=== PATIENT | female | born 1990 | race Caucasian/White ===

== ENCOUNTER 2017-10-19 01:49 | Emergency (ER) | payer MEDICAID ==
[~2017-10-19] VITALS: Ht 154.9 cm; Wt 54.0 kg
[~2017-10-19 01:49] MED LIST: PRENAT PO
[2017-10-19 01:57] VITALS: Ht 154.9 cm; Wt 54.0 kg
[2017-10-19] MEDS ORDERED: SOD CHLORIDE 0.9% 500 ML IV STA (02:38)
[2017-10-19] MEDS ORDERED: HYDROmorphONE 1 MG/ML SYG IV STA (02:38)
[2017-10-19] MEDS ORDERED: ONDANSETRON 4 MG INJ IV STA (02:38)
--- NOTE | 2017-10-19 03:16 | ERD ---
ER Documentation Chief Complaint Chief Complaint pelvic pain x 1 day HPI This is a 26-year-old female who states that this morning she had the onset of sudden sharp it is now becoming a dull ache in the right lower quadrant. She is having no nausea no vomiting no diarrhea no fever no vaginal discharge no dysuria. Pain is nonradiating. No pain in the back no recent hematuria or dysuria. The pain is not increased with walking ROS All systems reviewed and are negative except as per history of present illness. Medications Home Meds Reported Medications Multivit/Min/Fol Ac/Iron/Pren* ( S*) 1 Tab Tab, 1 TAB PO DAILY, TAB 08/26/14 Allergies Allergies: Coded Allergies: No Known Allergy (Unverified , 09/29/14) PMhx/Soc Medical and Surgical Hx: pt denies Medical Hx History of Surgery: Yes (c section) Hx Neurological Disorder: No Hx Respiratory Disorders: No Hx Cardiac Disorders: No Hx Psychiatric Problems: No Hx Miscellaneous Medical Probl: No Hx Alcohol Use: No Hx Substance Use: No Hx Tobacco Use: No Smoking Status: Never smoker FmHx Family History: No coronary disease Physical Exam Vitals Vital Signs Date Time Temp Pulse Resp B/P Pulse Ox O2 Delivery O2 Flow Rate FiO2 10/19/17 01:57 98.2 61 20 114/67 99 Physical Exam Const: Well-developed, well-nourished Head: Atraumatic, normocephalic Eyes: Normal Conjunctiva, PERRLA, EOMI, normal sclera, no nystagmus ENT: Normal External Ears, Nose and Mouth, moist mucus membranes. Neck: Full range of motion. No meningismus, no lymphadenopathy. Resp: Clear to auscultation bilaterally, no wheezing, rhonchi, rales Cardio: Regular rate and rhythm, no murmurs, S1 S2 present Abd: Soft, moderate tenderness in the right lower quadrant and right adnexa non distended. Normal bowel sounds, no guarding or rebound, no pulsitile abdominal masses or bruits Skin: No petechiae or rashes, no ecchymosis , no maculopapular rash Back: No midline or flank tenderness Ext: No cyanosis, or edema, FROM x 4, normal inspection, neurovascularly intact x 4 Neur: Awake and alert, STR 5/5 x 4, sensation intact x 4, no focal findings, cerebellum intact Psych: Normal Mood and Affect Result Diagram: 10/19/17 0304 10/19/17 0304 Results 24 hrs Laboratory Tests Test 10/19/17 03:04 10/19/17 03:10 White Blood Count 8.810^3/ul Red Blood Count 4.6310^6/ul Hemoglobin 12.7g/dl Hematocrit 38.1% Mean Corpuscular Volume 82.3fl Mean Corpuscular Hemoglobin 27.4pg Mean Corpuscular Hemoglobin Concent 33.3g/dl Red Cell Distribution Width 13.1% Platelet Count 83911^3/UL Mean Platelet Volume 10.8fl Neutrophils % 48.1% Lymphocytes % 41.1% Monocytes % 7.7% Eosinophils % 2.2% Basophils % 0.7% Nucleated Red Blood Cells % 0.0/100WBC Neutrophils # 4.210^3/ul Lymphocytes # 3.610^3/ul Monocytes # 0.710^3/ul Eosinophils # 0.210^3/ul Basophils # 0.110^3/ul Nucleated Red Blood Cells # 0.010^3/ul Sodium Level 142mmol/L Potassium Level 3.8mmol/L Chloride Level 105mmol/L Carbon Dioxide Level 29mmol/L Anion Gap 12 Blood Urea Nitrogen 20mg/dl Creatinine 0.72mg/dl Glucose Level 89mg/dl Calcium Level 9.6mg/dl Total Bilirubin 0.2mg/dl Direct Bilirubin 0.00mg/dl Indirect Bilirubin 0.2mg/dl Aspartate Amino Transf (AST/SGOT) 39IU/L Alanine Aminotransferase (ALT/SGPT) 50IU/L Alkaline Phosphatase 93IU/L Total Protein 7.0g/dl Albumin 3.7g/dl Globulin 3.30g/dl Albumin/Globulin Ratio 1.12 Urine Color COLORLESS Urine Clarity CLEAR Urine pH 7.0 Urine Specific [place] 1.004 Urine Ketones NEGATIVEmg/dL Urine Nitrite NEGATIVEmg/dL Urine Bilirubin NEGATIVEmg/dL Urine Urobilinogen NEGATIVEmg/dL Urine Leukocyte Esterase NEGATIVELeu/ul Urine Hemoglobin NEGATIVEmg/dL Urine Glucose NEGATIVEmg/dL Urine Total Protein NEGATIVEmg/dl Current Medications Medications (Trade) Dose Ordered Sig/Cecil Route PRN Reason Start Time Stop Time Status Last Admin Dose Admin Sodium Chloride (NS) 500 ml @ 500 mls/hr Q1H STAT IV 10/19/17 02:38 12/10/17 03:37 DC 10/19/17 03:41 Hydromorphone HCl (Dilaudid) 1 mg ONCE STAT IV 10/19/17 02:38 10/19/17 02:41 DC 10/19/17 03:43 Ondansetron HCl (Zofran Inj) 4 mg ONCE STAT IV 10/19/17 02:38 10/19/17 02:41 DC 10/19/17 03:43 IV Flush 10 ml 10 ml STK-MED ONCE .ROUTE 10/19/17 04:37 10/19/17 04:38 DC Sodium Chloride (NS) 100 ml @ ud STK-MED ONCE .ROUTE 10/19/17 04:37 10/19/17 04:38 DC 10/19/17 04:46 Iohexol (Omnipaque 300mg/ ml) 150 ml STK-MED ONCE .ROUTE 10/19/17 04:37 10/19/17 04:38 DC 10/19/17 04:46 Procedures/MDM PROCEDURE: CT Abdomen and pelvis with contrast CLINICAL INDICATION: Right lower quadrant pain TECHNIQUE: Spiral CT images through the abdomen and pelvis without administration of oral and during administration of 100 cc of Omnipaque-300 contrast material. Multiplanar reconstructions. The total exam CTDI equals 5.88 mGy and the total exam DLP equals 323.08 mGy-cm. One or more of the following dose reduction techniques were used: automated exposure control, adjustment of the mA and/or kV according to patient size, or use of iterative reconstruction technique. DICOM images are available. COMPARISON: None. FINDINGS: Lower thorax: Slight dependent atalectasis of the lung bases is seen.. Calcified granulomas of the right middle and lower lobes. Liver: The liver is unremarkable in appearance. Biliary: 1.2 cm gallstone. No definite wall thickening or pericholecystic fluid.. No biliary ductal dilatation is seen. Spleen: The spleen is unremarkable in appearance Adrenal glands: Unremarkable in appearance. No focal nodule.. Genitourinary: No hydronephrosis or renal calculi.. The bladder is unremarkable in appearance.. Pancreas: Unremarkable. No focal mass or inflammatory process. Gastrointestinal Tract: There is no evidence for bowel obstruction, free air, or abscess. The appendix is unremarkable in appearance. Lymph nodes: No adenopathy is seen.. Peritoneal cavity: Unremarkable mesentery and peritoneum.. Trace pelvic free fluid. Reproductive Organs: Unremarkable uterus. Bilateral ovarian follicles measuring up to 2 cm on the right. Trace pelvic free fluid.. Vascular structures: The aorta and mesenteric vessels are unremarkable.. Musculoskeletal: Mild sclerosis is seen about the sacroiliac joints suggesting sacroiliitis.. Tiny fat-containing umbilical hernia. IMPRESSION: Normal appendix. Bilateral ovarian follicles measuring up to 2 cm on the right with trace pelvic free fluid. 1.2 cm gallstone. No ductal dilatation. Prior granulomatous disease.. RPTAT: [facility] Physician Terence Date Time Electronically viewed and signed by Liana Meredith Physician on 10/19/2017 04 :59 LE/ CC: ESVIN DAMON DO Patient shows no appendicitis does show some a right ovarian follicle cyst likely has a ruptured cyst due to the free fluid in the pelvis. Patient is feeling better. Discharge home with pain control and observation Departure Diagnosis: Primary Impression: Ruptured ovarian cyst Condition: Stable ESVIN DAMON DO Oct 19, 2017 03:16
[2017-10-19 03:53] LABS: ADD UMIC NO; UR ASCORBIC ACID NEGATIVE (NEGATIVE); UR BILIRUBIN (Dip) NEGATIVE (NEGATIVE); UR BLOOD (Dip) NEGATIVE (NEGATIVE); UR CLARITY CLEAR (CLEAR); UR COLOR COLORLESS (YELLOW); UR GLUCOSE (Dip) NEGATIVE (NEGATIVE); UR KETONES (Dip) NEGATIVE (NEGATIVE); UR LEUKOCYTE ESTERASE (Dip) NEGATIVE Leu/ul (NEGATIVE); UR NITRITE (Dip) NEGATIVE (NEGATIVE); UR SPECIFIC GRAVITY (Dip) 1.004 (1.003-1.030); UR TOTAL PROTEIN (Dip) NEGATIVE (NEGATIVE); UR UROBILINOGEN (Dip) NEGATIVE (NEGATIVE)
[2017-10-19 04:01] LABS: BASOPHIL # 0.1 10^3/ul (0.0-0.1); BASOPHILS % 0.7 % (0.0-2.0); EOSINOPHILS # 0.2 10^3/ul (0.0-0.5); EOSINOPHILS % 2.2 % (0.0-7.0); HEMATOCRIT 38.1 % (37.0-47.0); HEMOGLOBIN 12.7 g/dl (12.0-16.0); LYMPHOCYTES # 3.6 10^3/ul (0.8-2.9); LYMPHOCYTES % 41.1 % (15.0-51.0); MEAN CORPUSCULAR HEMOGLOBIN 27.4 pg (29.0-33.0); MEAN CORPUSCULAR HGB CONC 33.3 g/dl (32.0-37.0); MEAN CORPUSCULAR VOLUME 82.3 fl (82.0-101.0); MEAN PLATELET VOLUME 10.8 fl (7.4-10.4); MONOCYTE # 0.7 10^3/ul (0.3-0.9); MONOCYTES % 7.7 % (0.0-11.0); NEUTROPHIL # 4.2 10^3/ul (1.6-7.5); NEUTROPHILS % 48.1 % (39.0-77.0); PLATELET COUNT 276 10^3/UL (140-415); RED BLOOD COUNT 4.63 10^6/ul (4.20-5.40); RED CELL DISTRIBUTION WIDTH 13.1 % (11.5-14.5); WHITE BLOOD COUNT 8.8 10^3/ul (4.8-10.8)
[2017-10-19 04:10] LABS: ALBUMIN 3.7 g/dl (3.3-4.9); ALBUMIN/GLOBULIN RATIO 1.12; BILIRUBIN,INDIRECT 0.2 mg/dl (0-1.1); BILIRUBIN,TOTAL 0.2 mg/dl (0.2-1.3); CALCIUM 9.6 mg/dl (8.4-10.2); CREATININE 0.72 mg/dl (0.44-1.00); POTASSIUM 3.8 mmol/L (3.5-5.1)
[2017-10-19] MEDS ORDERED: IOHEXOL 300MG/ML 150 ML BTL ONE (04:37)
[2017-10-19] MEDS ORDERED: SOD CHLORIDE 0.9% 100 ML ONE (04:37)
--- NOTE | 2017-10-19 04:59 | RADRPT ---
PROCEDURE: CT Abdomen and pelvis with contrast CLINICAL INDICATION: Right lower quadrant pain TECHNIQUE: Spiral CT images through the abdomen and pelvis without administration of oral and duri ng administration of 100 cc of Omnipaque-300 contrast material. Multiplanar reconstructions. The t otal exam CTDI equals 5.88 mGy and the total exam DLP equals 323.08 mGy-cm. One or more of the follo wing dose reduction techniques were used: automated exposure control, adjustment of the mA and/or kV according to patient size, or use of iterative reconstruction technique. DICOM images are available . COMPARISON: None. FINDINGS: Lower thorax: Slight dependent atalectasis of the lung bases is seen.. Calcified granulomas of the r ight middle and lower lobes. Liver: The liver is unremarkable in appearance. Biliary: 1.2 cm gallstone. No definite wall thickening or pericholecystic fluid.. No biliary ductal dilatation is seen. Spleen: The spleen is unremarkable in appearance Adrenal glands: Unremarkable in appearance. No focal nodule.. Genitourinary: No hydronephrosis or renal calculi.. The bladder is unremarkable in appearance.. Pancreas: Unremarkable. No focal mass or inflammatory process. Gastrointestinal Tract: There is no evidence for bowel obstruction, free air, or abscess. The appen hasmukh is unremarkable in appearance. Lymph nodes: No adenopathy is seen.. Peritoneal cavity: Unremarkable mesentery and peritoneum.. Trace pelvic free fluid. Reproductive Organs: Unremarkable uterus. Bilateral ovarian follicles measuring up to 2 cm on the ri ght. Trace pelvic free fluid.. Vascular structures: The aorta and mesenteric vessels are unremarkable.. Musculoskeletal: Mild sclerosis is seen about the sacroiliac joints suggesting sacroiliitis.. Tiny f at-containing umbilical hernia. IMPRESSION: Normal appendix. Bilateral ovarian follicles measuring up to 2 cm on the right with trace pelvic free fluid. 1.2 cm gallstone. No ductal dilatation. Prior granulomatous disease.. RPTAT: [facility] Physician Terence Date Time Electronically viewed and signed by Physician Terence on 10/19/2017 04:59 LE/
[2017-10-19] MEDS ORDERED: HYDR-906 PO (05:18)
== END 2017-10-19 05:30 | disposition home or self-care (01) ==
LOC: FTE 01:49
DX: N83.291 Other ovarian cyst, right side (principal)
CPT/HCPCS: 36415; 74177; 80053; 81003; 85025; 96374; 96375; J1170; J2405; J7040; Q9967; Z7502; Z7610

== ENCOUNTER 2018-01-14 18:46 | Emergency (ER) | END 2018-01-15 00:19 | disposition home or self-care (01) ==

== ENCOUNTER 2018-10-24 12:31 | Emergency (ER) | END 2018-10-24 14:35 | disposition home or self-care (01) ==

== ENCOUNTER 2018-12-24 18:51 | Emergency (ER) | payer MEDICAID ==
[~2018-12-24] VITALS: Ht 152.4 cm; Wt 56.1 kg
[~2018-12-24 18:51] MED LIST changes: +CYCL10TA7 PO; +HYDR-4011 PO; +IBUP-1542 PO; +MECL12.574 PO; +NAPR-985 PO; +NITR-58 PO
[2018-12-24 19:01] VITALS: BP 130/79; PULSE 88; RESP 18; Ht 152.4 cm; Wt 56.1 kg
--- NOTE | 2018-12-24 22:14 | ERD ---
ER Documentation Chief Complaint Chief Complaint headache/dizziness/nausea x 1 day HPI 28-year-old female, previously healthy, presents the emergency department, complaining of acute onset of dizziness, described as things are spinning around, associated with nausea and mild headache for 1 day. She denies blurred vision, no distal weakness, numbness or tingling. She had a similar episode last year and was diagnosed with vertigo. ROS All systems reviewed and are negative except as per history of present illness. Medications Home Meds Active Scripts Nitrofurantoin Monohyd Macrocr* (Macrobid*) 100 Mg Capsr, 100 MG PO BID for 14 Days, CAP Prov:MARILEE RICHTER PA-C 12/19/18 Naproxen* (Naprosyn*) 500 Mg Tablet, 500 MG PO BID PRN for PAIN AND/OR INFLAMMATION, #30 TAB Prov:MARILEE RICHTER PA-C 12/19/18 Cyclobenzaprine Hcl* (Cyclobenzaprine Hcl*) 10 Mg Tablet, 10 MG PO TID, #15 TAB Prov:FREDO AIKEN NP 10/24/18 Ibuprofen* (Motrin*) 600 Mg Tab, 600 MG PO Q6H PRN for PAIN AND OR ELEVATED TEMP, #30 TAB Prov:FREDO AIKEN NP 10/24/18 Meclizine Hcl* (Antivert*) 12.5 Mg Tab, 12.5 MG PO Q6H PRN for DIZZINESS, #20 TAB Prov:JAELYN GOODWIN MD 01/15/18 Hydrocodone/Acetaminophen (Waves 5-325 Tablet) 1 Each Tablet, 1 TAB PO Q6H PRN for PAIN, #20 TAB Prov:ESVIN DAMON DO 10/19/17 Reported Medications Multivit/Min/Fol Ac/Iron/Pren* ( S*) 1 Tab Tab, 1 TAB PO DAILY, TAB 08/26/14 Allergies Allergies: Coded Allergies: No Known Allergy (Unverified , 09/29/14) PMhx/Soc History of Surgery: Yes ( x3) Hx Neurological Disorder: No Hx Respiratory Disorders: No Hx Cardiac Disorders: No Hx Psychiatric Problems: No Hx Miscellaneous Medical Probl: No Hx Alcohol Use: No Hx Substance Use: No Hx Tobacco Use: No Smoking Status: Never smoker FmHx Family History: No diabetes, No coronary disease Physical Exam Vitals Vital Signs Date Temp Pulse Resp B/P (MAP) Pulse Ox O2 O2 Flow FiO2 Time Delivery Rate 12/24/18 98.8 88 18 130/79 98 19:01 (96) Physical Exam Const: No acute distress Head: Atraumatic Eyes: Normal Conjunctiva ENT: Normal External Ears, Nose and Mouth. Neck: Full range of motion. No meningismus. Resp: Clear to auscultation bilaterally Cardio: Regular rate and rhythm, no murmurs Abd: Soft, non tender, non distended. Normal bowel sounds Skin: No petechiae or rashes Back: No midline or flank tenderness Ext: No cyanosis, or edema Neur: Awake and alert, horizontal nystagmus while the patient is looking straight ahead with mildly abnormal head impulse test. Psych: Normal Mood and Affect Results 24 hrs Laboratory Tests Test 12/24/18 22:34 12/24/18 22:37 Bedside Urine pH (LAB) 7.0 Bedside Urine Protein (LAB) Negative Bedside Urine Glucose (UA) Negative Bedside Urine Ketones (LAB) 1+ Bedside Urine Blood Negative Bedside Urine Nitrite (LAB) Negative Bedside Urine Leukocyte Esterase (L Negative POC Beta HCG, Qualitative NEGATIVE Current Medications Medications Dose Sig/Cecil Start Time Status Last (Trade) Ordered Route PRN Stop Time Admin Dose Reason Admin Meclizine 12.5 mg ONCE ONCE 12/24/18 DC 12/24/18 HCl PO 22:30 22:30 (Antivert) 12/24/18 22:31 Lorazepam 1 mg ONCE ONCE 12/24/18 DC 12/24/18 (Ativan) PO 22:30 22:30 12/24/18 22:31 Ondansetron 8 mg ONCE STAT 12/24/18 DC 12/24/18 HCl (Zofran ODT 22:20 22:30 Odt) 12/24/18 22:22 Procedures/MDM Vital signs stable, physical exam unremarkable. Differential diagnosis include but not limited to dehydration, cardiac arrhythmia, , Mnire's disease, vestibular neuronitis, migraine, vertigo, side effects of the medications, hypoglycemia. 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 Physical examination and clinical presentation consistent most likely with positional vertigo During the ED course the patient remained stable, no new complaints. Results and clinical impression discussed with patient who agrees with management. The patient is stable to be treated outpatient and will be discharged home with instructions to follow up with the primary care provider in the next 48h. If symptoms persist, worsen or new symptoms develop, then patient should return to the ED immediately. Instructions explained and given directly by me to the patient with acknowledgment and demonstrated understanding. Disclaimer: Inadvertent spelling and grammatical errors are likely due to EHR/dictation software use and do not reflect on the overall quality of patient care. Also, please note that the electronic time recorded on this note does not necessarily reflect the actual time of the patient encounter. Departure Diagnosis: Primary Impression: Positional vertigo Condition: Stable Additional Instructions: Muchas yady por [facility] para bernard servicio. Esperamos que en bernard visita a la ruel de emergencia bernard problema medico haya sido solucionado y que se sienta mucho mejor. Para estar seguros que bernard mejoria sigue en proceso, le pedimos el favor de hacer amy kenna de seguimiento medico con bernard doctor primario en los proximos 2-4 wiggins. Lleve con usted estos documentos y las medicinas recetadas. Si bridger sintomas empeoran, NO SE ESPERE, por favor regrese a ruel de emergencia INMEDIATAMENTE. En kailash que usted no tenga un mdico de atencin primaria: Llame al mdico o clnica comunitaria de referencia que aparece abajo seble las horas de consultorio para hacer amy kenna para que le vean. CLINICAS: [facility] [phone] [facility] [phone] [facility] [phone] [facility] [phone] [place] [phone] [facility]. [phone] AJELYN MORROW MD Dec 24, 2018 22:14
[2018-12-24] MEDS ORDERED: ONDANSETRON (ODT) 4 MG TAB ODT STA (22:20)
[2018-12-24] MEDS ORDERED: LORAZEPAM 1 MG TAB PO ONE (22:30)
[2018-12-24] MEDS ORDERED: MECLIZINE 12.5 MG TAB PO ONE (22:30)
[2018-12-24] MEDS ORDERED: MECL-77 PO (23:20)
[2018-12-24] MEDS ORDERED: LORA-441 PO (23:20)
[2018-12-24] MEDS ORDERED: ONDA4TAB8 PO (23:20)
== END 2018-12-24 23:40 | disposition home or self-care (01) ==
LOC: FTE 18:51
DX: H81.10 Benign paroxysmal vertigo, unspecified ear (principal); R11.0 Nausea
CPT/HCPCS: 81003; 81025; Z7502; Z7610; 99283

== ENCOUNTER 2019-06-26 18:28 | Emergency (ER) | payer MEDICAID ==
[~2019-06-26] VITALS: Ht 147.3 cm; Wt 56.8 kg
[~2019-06-26 18:28] MED LIST changes: +LORA-441 PO; +MECL-77 PO; +ONDA4TAB8 PO
[2019-06-26 18:32] VITALS: Ht 147.3 cm; Wt 56.8 kg
[2019-06-26] MEDS ORDERED: SOD CHLORIDE 0.9% 1,000 ML IV STA (19:56)
[2019-06-26] MEDS ORDERED: morphine 4 MG/ML VIAL IV STA (19:56)
[2019-06-26] MEDS ORDERED: ONDANSETRON 4 MG INJ IV STA (19:56)
[2019-06-26] MEDS ORDERED: SOD CHLORIDE 0.9% 100 ML ONE (20:46)
[2019-06-26] MEDS ORDERED: IOHEXOL 300MG/ML 150 ML BTL ONE (20:46)
[2019-06-27 00:18] VITALS: BP 114/65; PULSE 69; RESP 17
== END 2019-06-27 00:18 | disposition home or self-care (01) ==
LOC: FTE 18:28
DX: R10.31 Right lower quadrant pain (principal)
CPT/HCPCS: 36415; 74177; 76705; 80053; 81003; 81025; 83690; 85025; 96361; 96374; 96375; J2270; J2405; J7030; Q9967; Z7502; Z7610